=== PATIENT | male | born 1950 | race Two or more races ===

== ENCOUNTER 2019-11-25 04:06 | Inpatient (IN) | payer MEDICARE, MEDICAID ==
[2019-11-25] VITALS (22 sets, daily range): BP systolic 103–128; BP diastolic 53–83
[~2019-11-25] VITALS: Ht 177.8 cm; Wt 87.8 kg
[2019-11-25 05:32] LABS: Basophils # (auto) 0 10 ^3/uL (0-0.2); Basophils % (auto) 0.2 % (0.0-2.0); Eosinophils # (auto) 0 10 ^3/uL (0-0.8); Hematocrit 29.1 % (41.0-53.0); Hemoglobin 9.7 g/dL (13.5-17.5); Lymphocytes # (auto) 0.5 10 ^3/uL (0.4-5.4); Lymphocytes % (auto) 10.3 % (10.0-50.0); Mean Corpuscular Hemoglobin 37.1 pg (28.0-32.0); Mean Corpuscular Hgb Conc. 33.2 g/dL (32.0-36.0); Mean Corpuscular Volume 111.7 fL (80.0-100.0); Monocytes # (auto) 0.4 10 ^3/uL (0-1.3); Neutrophils # (auto) 3.8 10 ^3/uL (1.6-8.6); Neutrophils % (auto) 80.5 % (37.0-80.0); Nucleated Red Blood Cells % 0.3 %; Platelet Count (auto) 87 10^3/uL (140-450); Red Blood Cells 2.61 10^6/uL (4.5-5.90); Red Cell Distribution Width 18.6 % (11.8-14.3); White Blood Cell 4.8 10^3/uL (4.4-10.8)
[2019-11-25 05:43] LABS: INR 1.27 (0.9-1.15)
[2019-11-25 05:45] LABS: Albumin 2.2 g/dL (3.4-5.0); Calcium 8.5 mg/dL (8.5-10.1); Potassium 3.8 mmol/L (3.5-5.1)
[2019-11-25 05:53] LABS: BUN/Creatinine Ratio 16.7; Bilirubin, Total 0.8 mg/dL (0.2-1.0); Magnesium 2.5 mg/dL (1.6-2.6); Total Protein 7.1 g/dL (6.4-8.2)
[2019-11-25] MEDS ORDERED: PIPERACILLIN-TAZOB 3.375GM 100 ML IV ONE (07:45)
[2019-11-25] MEDS ORDERED: ENOXAPARIN SOD 80 MG/0.8ML SYRINGE SC ONE (08:00)
[2019-11-25 08:25] LABS: CRP High Sensitivity 8.33 mg/dL (< 0.3)
[2019-11-25] MEDS: FAMOTIDINE (10MG/ML) 2ML VL IV ONE ×2 (08:29→08:34)
[2019-11-25] MEDS ORDERED: NITROGLYCERIN 0.4 MG SL TAB SL PRN (09:15)
[2019-11-25] MEDS ORDERED: MORPHINE SULF INJ 2 MG/ML SYRINGE 1ML IV PRN (09:15)
[2019-11-25] MEDS ORDERED: ONDANSETRON HCL 4 MG/2 ML VIAL IV PRN (09:30)
[2019-11-25] MEDS ORDERED: ZOLPIDEM TARTRATE 5 MG TAB PO PRN (09:30)
[2019-11-25] MEDS ORDERED: ALBUTEROL SULF 2.5 MG/0.5ML(0.5%) NEB SOLN NEB PRN (09:30)
[2019-11-25] MEDS ORDERED: LACTULOSE 20Gm/30ML SOLN PO PRN (09:30)
[2019-11-25] MEDS ORDERED: ACETAMINOPHEN 500 MG TAB PO PRN (09:30)
[2019-11-25] MEDS: DOXYCYCLINE 100MG/250ML 250 ML IV SCH ×2 (09:45→21:45)
[2019-11-25] MEDS: ASPirin 81 mg TAB PO SCH (10:00)
[2019-11-25] MEDS ORDERED: ENOXAPARIN SOD 30 MG/0.3 ML SYRINGE SC SCH (10:00)
[2019-11-25] MEDS: NITROGLYCERIN 0.2MG/HR TOPICAL PATCH TD SCH (10:00)
[2019-11-25] MEDS: FUROSEMIDE 40 MG/4 ML VIAL IV SCH (10:14)
[2019-11-25] MEDS: IPRATROPIUM BROM 0.5 MG/2.5ML INH SOL NEB SCH ×2 (12:00→18:00)
[2019-11-25] MEDS: ALBUTEROL SULF 2.5 MG/0.5ML(0.5%) NEB SOLN NEB SCH ×2 (12:00→18:00)
[2019-11-25] MEDS: ACCU-CHEK COMFORT CURVE STRIP VI SCH ×3 (12:40→22:52)
[2019-11-25] MEDS: InsuLIN REG 1unit/0.01ml Soln (100units/ml) SC SCH ×3 (12:40→22:00)
[2019-11-25] MEDS ORDERED: B-CO-5 PO (14:22)
[2019-11-25] MEDS ORDERED: FERR1TAB17 PO (14:24)
[2019-11-25] MEDS: ATORVASTATIN 20 MG TAB PO SCH (21:45)
[2019-11-26] VITALS (19 sets, daily range): BP systolic 108–173; BP diastolic 17–75
[2019-11-26] MEDS: IPRATROPIUM BROM 0.5 MG/2.5ML INH SOL NEB SCH ×4 (00:17→19:05)
[2019-11-26] MEDS: ALBUTEROL SULF 2.5 MG/0.5ML(0.5%) NEB SOLN NEB SCH ×4 (00:17→19:05)
[2019-11-26 03:49] LABS: Basophils # (auto) 0 10 ^3/uL (0-0.2); Basophils % (auto) 0.3 % (0.0-2.0); Eosinophils # (auto) 0 10 ^3/uL (0-0.8); Eosinophils % (auto) 0.1 % (0.0-7.0); Hemoglobin 9.4 g/dL (13.5-17.5); Lymphocytes # (auto) 0.6 10 ^3/uL (0.4-5.4); Nucleated Red Blood Cells % 0.2 %; Red Cell Distribution Width 18.8 % (11.8-14.3)
[2019-11-26 03:51] LABS: Hematocrit 28.7 % (41.0-53.0); Mean Corpuscular Hemoglobin 37.7 pg (28.0-32.0); Mean Corpuscular Hgb Conc. 32.8 g/dL (32.0-36.0); Mean Corpuscular Volume 114.9 fL (80.0-100.0); Monocytes # (auto) 0.5 10 ^3/uL (0-1.3); Monocytes % (auto) 7.9 % (0.0-12.0); Neutrophils # (auto) 4.9 10 ^3/uL (1.6-8.6); Neutrophils % (auto) 81.7 % (37.0-80.0); Platelet Count (auto) 72 10^3/uL (140-450); White Blood Cell 5.9 10^3/uL (4.4-10.8)
[2019-11-26 04:06] LABS: BUN/Creatinine Ratio 15.8; Calcium 8.5 mg/dL (8.5-10.1); Potassium 3.9 mmol/L (3.5-5.1)
[2019-11-26 04:10] LABS: Bilirubin, Total 0.8 mg/dL (0.2-1.0); Total Protein 6.6 g/dL (6.4-8.2)
[2019-11-26] MEDS: InsuLIN REG 1unit/0.01ml Soln (100units/ml) SC SCH ×4 (05:34→22:00)
[2019-11-26] MEDS: ACCU-CHEK COMFORT CURVE STRIP VI SCH ×4 (05:37→23:00)
[2019-11-26] MEDS ORDERED: SODIUM CHL 0.9% 1000 ML BAG XX ONE (07:00)
[2019-11-26] MEDS: NITROGLYCERIN 0.2MG/HR TOPICAL PATCH TD SCH (10:00)
[2019-11-26] MEDS: DOXYCYCLINE 100MG/250ML 250 ML IV SCH ×2 (10:07→18:03)
[2019-11-26] MEDS: FUROSEMIDE 40 MG/4 ML VIAL IV SCH (10:11)
[2019-11-26] MEDS: ASPirin 81 mg TAB PO SCH (10:12)
[2019-11-26] MEDS: Glucerna Carbsteady SHAKE Vanilla 8oz PO SCH ×2 (12:10→18:02)
[2019-11-26] MEDS ORDERED: EPOETIN ALFA 10,000 UNIT/1 ML VIAL SC ONE (21:00)
[2019-11-26] MEDS: ATORVASTATIN 20 MG TAB PO SCH (23:00)
[2019-11-26] MEDS: MUPIROCIN 2% OINT 15gm or 22gm EACHNOSTRI SCH (23:00)
[2019-11-26] MEDS: traMADol HCL 50 MG TAB PO PRN (23:52)
[2019-11-27] VITALS: BP 124/25
[2019-11-27] MEDS: IPRATROPIUM BROM 0.5 MG/2.5ML INH SOL NEB SCH ×4 (00:08→18:14)
[2019-11-27] MEDS: ALBUTEROL SULF 2.5 MG/0.5ML(0.5%) NEB SOLN NEB SCH ×4 (00:09→18:14)
[2019-11-27 04:00] VITALS: BP 104/13
[2019-11-27] MEDS: DOXYCYCLINE 100MG/250ML 250 ML IV SCH ×2 (05:54→18:54)
[2019-11-27] MEDS: ACCU-CHEK COMFORT CURVE STRIP VI SCH ×4 (06:51→21:36)
[2019-11-27] MEDS: InsuLIN REG 1unit/0.01ml Soln (100units/ml) SC SCH ×4 (06:52→21:35)
[2019-11-27 07:07] LABS: Basophils # (auto) 0 10 ^3/uL (0-0.2); Basophils % (auto) 0.3 % (0.0-2.0); Eosinophils # (auto) 0 10 ^3/uL (0-0.8); Monocytes # (auto) 0.5 10 ^3/uL (0-1.3); Neutrophils # (auto) 4.5 10 ^3/uL (1.6-8.6); White Blood Cell 5.6 10^3/uL (4.4-10.8)
[2019-11-27 07:11] LABS: Hematocrit 27.3 % (41.0-53.0); Hemoglobin 8.7 g/dL (13.5-17.5); Lymphocytes # (auto) 0.5 10 ^3/uL (0.4-5.4); Lymphocytes % (auto) 9.7 % (10.0-50.0); Mean Corpuscular Hemoglobin 36.8 pg (28.0-32.0); Mean Corpuscular Hgb Conc. 31.7 g/dL (32.0-36.0); Mean Corpuscular Volume 116.1 fL (80.0-100.0); Monocytes % (auto) 8.3 % (0.0-12.0); Neutrophils % (auto) 81.7 % (37.0-80.0); Nucleated Red Blood Cells % 0.1 %; Platelet Count (auto) 63 10^3/uL (140-450); Red Blood Cells 2.35 10^6/uL (4.5-5.90); Red Cell Distribution Width 19.1 % (11.8-14.3)
[2019-11-27 07:27] LABS: Calcium 7.9 mg/dL (8.5-10.1)
[2019-11-27 07:34] LABS: BUN/Creatinine Ratio 15.8; Bilirubin, Total 0.6 mg/dL (0.2-1.0); Total Protein 6.3 g/dL (6.4-8.2)
[2019-11-27 08:00] VITALS: BP 113/29
[2019-11-27] MEDS: Glucerna Carbsteady SHAKE Vanilla 8oz PO SCH ×3 (08:00→18:55)
[2019-11-27] MEDS: FUROSEMIDE 40 MG/4 ML VIAL IV SCH (10:00)
[2019-11-27] MEDS: NITROGLYCERIN 0.2MG/HR TOPICAL PATCH TD SCH (10:00)
[2019-11-27] MEDS: ASPirin 81 mg TAB PO SCH (10:21)
[2019-11-27] MEDS: MUPIROCIN 2% OINT 15gm or 22gm EACHNOSTRI SCH ×2 (10:21→21:35)
[2019-11-27 12:00] VITALS: BP 110/30
[2019-11-27 16:59] VITALS: BP 134/59
[2019-11-27 21:00] VITALS: BP 148/121
[2019-11-27] MEDS: ATORVASTATIN 20 MG TAB PO SCH (21:35)
[2019-11-28] MEDS: IPRATROPIUM BROM 0.5 MG/2.5ML INH SOL NEB SCH ×4 (00:07→18:27)
[2019-11-28] MEDS: ALBUTEROL SULF 2.5 MG/0.5ML(0.5%) NEB SOLN NEB SCH ×4 (00:07→18:28)
[2019-11-28] MEDS: traMADol HCL 50 MG TAB PO PRN (00:46)
[2019-11-28 05:00] VITALS: BP 134/54
[2019-11-28] MEDS: DOXYCYCLINE 100MG/250ML 250 ML IV SCH ×2 (06:19→18:04)
[2019-11-28] MEDS: ACCU-CHEK COMFORT CURVE STRIP VI SCH ×4 (06:20→22:01)
[2019-11-28] MEDS: InsuLIN REG 1unit/0.01ml Soln (100units/ml) SC SCH ×4 (06:20→22:00)
[2019-11-28] MEDS: DEXTROSE (50%) 50ML SYRG IV PRN ×2 (06:33→16:38)
[2019-11-28 07:29] LABS: Basophils # (auto) 0 10 ^3/uL (0-0.2); Eosinophils # (auto) 0 10 ^3/uL (0-0.8); Eosinophils % (auto) 0.1 % (0.0-7.0); Hemoglobin 8.6 g/dL (13.5-17.5); Monocytes # (auto) 0.5 10 ^3/uL (0-1.3); Red Cell Distribution Width 19.2 % (11.8-14.3); White Blood Cell 6.4 10^3/uL (4.4-10.8)
[2019-11-28 07:33] LABS: Basophils % (auto) 0.3 % (0.0-2.0); Hematocrit 27.7 % (41.0-53.0); Lymphocytes # (auto) 0.6 10 ^3/uL (0.4-5.4); Lymphocytes % (auto) 8.9 % (10.0-50.0); Mean Corpuscular Hemoglobin 36.1 pg (28.0-32.0); Mean Corpuscular Hgb Conc. 31.1 g/dL (32.0-36.0); Mean Corpuscular Volume 116.1 fL (80.0-100.0); Neutrophils # (auto) 5.3 10 ^3/uL (1.6-8.6); Neutrophils % (auto) 82.7 % (37.0-80.0); Nucleated Red Blood Cells % 0.1 %; Platelet Count (auto) 64 10^3/uL (140-450); Red Blood Cells 2.38 10^6/uL (4.5-5.90)
[2019-11-28 07:48] LABS: Potassium 4.5 mmol/L (3.5-5.1)
[2019-11-28] MEDS: Glucerna Carbsteady SHAKE Vanilla 8oz PO SCH ×3 (08:00→18:30)
[2019-11-28 08:02] LABS: BUN/Creatinine Ratio 14.8; Bilirubin, Total 0.7 mg/dL (0.2-1.0); Calcium 8.1 mg/dL (8.5-10.1); Total Protein 6.3 g/dL (6.4-8.2)
[2019-11-28 08:58] VITALS: BP 99/53
[2019-11-28] MEDS: MUPIROCIN 2% OINT 15gm or 22gm EACHNOSTRI SCH ×2 (10:00→22:01)
[2019-11-28] MEDS: FUROSEMIDE 40 MG/4 ML VIAL IV SCH (10:00)
[2019-11-28] MEDS: ASPirin 81 mg TAB PO SCH (10:00)
[2019-11-28] MEDS: NITROGLYCERIN 0.2MG/HR TOPICAL PATCH TD SCH (10:03)
[2019-11-28 13:25] VITALS: BP 115/57
[2019-11-28 16:31] VITALS: BP 125/61
[2019-11-28] MEDS: MORPHINE SULF INJ 2 MG/ML SYRINGE 1ML IV PRN (18:04)
[2019-11-28] MEDS: ATORVASTATIN 20 MG TAB PO SCH (21:58)
[2019-11-28 22:00] VITALS: BP 105/50
[2019-11-29] MEDS: IPRATROPIUM BROM 0.5 MG/2.5ML INH SOL NEB SCH ×5 (00:42→18:04)
[2019-11-29] MEDS: ALBUTEROL SULF 2.5 MG/0.5ML(0.5%) NEB SOLN NEB SCH ×5 (00:42→18:04)
[2019-11-29 04:44] VITALS: BP 105/50
[2019-11-29 05:31] VITALS: BP 109/49
[2019-11-29] MEDS: DOXYCYCLINE 100MG/250ML 250 ML IV SCH ×2 (06:16→18:05)
[2019-11-29 06:19] LABS: Eosinophils # (auto) 0 10 ^3/uL (0-0.8); Eosinophils % (auto) 0.1 % (0.0-7.0); Lymphocytes # (auto) 0.5 10 ^3/uL (0.4-5.4); Monocytes # (auto) 0.5 10 ^3/uL (0-1.3); Neutrophils % (auto) 85.1 % (37.0-80.0)
[2019-11-29 06:22] LABS: Basophils # (auto) 0 10 ^3/uL (0-0.2); Basophils % (auto) 0.7 % (0.0-2.0); Hematocrit 26.1 % (41.0-53.0); Hemoglobin 8.6 g/dL (13.5-17.5); Lymphocytes % (auto) 7.5 % (10.0-50.0); Mean Corpuscular Hemoglobin 37.4 pg (28.0-32.0); Mean Corpuscular Hgb Conc. 32.8 g/dL (32.0-36.0); Mean Corpuscular Volume 113.9 fL (80.0-100.0); Monocytes % (auto) 6.6 % (0.0-12.0); Neutrophils # (auto) 5.9 10 ^3/uL (1.6-8.6); Platelet Count (auto) 55 10^3/uL (140-450); Red Blood Cells 2.29 10^6/uL (4.5-5.90); Red Cell Distribution Width 18.2 % (11.8-14.3)
[2019-11-29] MEDS: ACCU-CHEK COMFORT CURVE STRIP VI SCH ×4 (06:34→21:50)
[2019-11-29] MEDS: DEXTROSE (50%) 50ML SYRG IV PRN ×2 (06:34→18:19)
[2019-11-29] MEDS: InsuLIN REG 1unit/0.01ml Soln (100units/ml) SC SCH ×4 (06:34→21:50)
[2019-11-29 06:37] LABS: Potassium 4.8 mmol/L (3.5-5.1)
[2019-11-29 06:47] LABS: BUN/Creatinine Ratio 15.2; Calcium 8.2 mg/dL (8.5-10.1)
[2019-11-29] MEDS ORDERED: SODIUM CHL 0.9% 1000 ML BAG XX ONE (07:00)
[2019-11-29] MEDS: Glucerna Carbsteady SHAKE Vanilla 8oz PO SCH ×3 (08:00→18:40)
[2019-11-29 08:46] LABS: INR 1.26 (0.9-1.15)
[2019-11-29 09:00] VITALS: BP 149/72
[2019-11-29] MEDS: ASPirin 81 mg TAB PO SCH (09:45)
[2019-11-29] MEDS: NITROGLYCERIN 0.2MG/HR TOPICAL PATCH TD SCH (09:46)
[2019-11-29] MEDS: MORPHINE SULF INJ 2 MG/ML SYRINGE 1ML IV PRN (09:49)
[2019-11-29] MEDS: MUPIROCIN 2% OINT 15gm or 22gm EACHNOSTRI SCH ×2 (11:18→21:49)
[2019-11-29] MEDS ORDERED: LIDOCAINE 2%HCL (LOCAL ANESTH.) INJ 20ML MDV ONE (12:10)
[2019-11-29] MEDS ORDERED: IOHEXOL 350 MG/ML 100ML IJ ONE (12:10)
[2019-11-29 13:00] VITALS: BP 126/59
[2019-11-29] MEDS ORDERED: SODIUM CHL 0.9% 0 ML ONE (13:22)
[2019-11-29] MEDS ORDERED: ANGIOMAX 250 MG VIAL IV ONE (13:22)
[2019-11-29] MEDS ORDERED: diphenhdrAMINE HCL 50 MG/1 ML VL ONE (13:22)
[2019-11-29 15:41] VITALS: BP 115/52
[2019-11-29 21:00] VITALS: BP 148/72
[2019-11-29] MEDS ORDERED: EPOETIN ALFA 10,000 UNIT/1 ML VIAL SC ONE (21:00)
[2019-11-29] MEDS: ATORVASTATIN 20 MG TAB PO SCH (21:49)
[2019-11-30] MEDS: IPRATROPIUM BROM 0.5 MG/2.5ML INH SOL NEB SCH ×4 (00:14→18:34)
[2019-11-30] MEDS: ALBUTEROL SULF 2.5 MG/0.5ML(0.5%) NEB SOLN NEB SCH ×4 (00:14→18:34)
[2019-11-30 05:00] VITALS: BP 140/58
[2019-11-30] MEDS: DOXYCYCLINE 100MG/250ML 250 ML IV SCH (06:24)
[2019-11-30] MEDS: ACCU-CHEK COMFORT CURVE STRIP VI SCH ×3 (06:28→18:00)
[2019-11-30] MEDS: InsuLIN REG 1unit/0.01ml Soln (100units/ml) SC SCH ×3 (06:29→18:00)
[2019-11-30] MEDS: DEXTROSE (50%) 50ML SYRG IV PRN (06:29)
[2019-11-30 06:58] LABS: Basophils # (auto) 0 10 ^3/uL (0-0.2); Basophils % (auto) 0.3 % (0.0-2.0); Eosinophils # (auto) 0 10 ^3/uL (0-0.8); Eosinophils % (auto) 0.2 % (0.0-7.0); Hematocrit 27.9 % (41.0-53.0); Hemoglobin 8.9 g/dL (13.5-17.5); Lymphocytes # (auto) 0.4 10 ^3/uL (0.4-5.4); Lymphocytes % (auto) 5.6 % (10.0-50.0); Mean Corpuscular Hemoglobin 36.4 pg (28.0-32.0); Mean Corpuscular Hgb Conc. 32.1 g/dL (32.0-36.0); Mean Corpuscular Volume 113.5 fL (80.0-100.0); Monocytes # (auto) 0.4 10 ^3/uL (0-1.3); Monocytes % (auto) 5.6 % (0.0-12.0); Neutrophils # (auto) 6.6 10 ^3/uL (1.6-8.6); Neutrophils % (auto) 88.3 % (37.0-80.0); Platelet Count (auto) 48 10^3/uL (140-450); Red Blood Cells 2.46 10^6/uL (4.5-5.90); Red Cell Distribution Width 18.4 % (11.8-14.3); White Blood Cell 7.5 10^3/uL (4.4-10.8)
[2019-11-30 07:14] LABS: Potassium 5.1 mmol/L (3.5-5.1)
[2019-11-30 07:25] LABS: BUN/Creatinine Ratio 15.5; Calcium 8.3 mg/dL (8.5-10.1)
[2019-11-30 08:00] VITALS: BP 160/74
[2019-11-30] MEDS: traMADol HCL 50 MG TAB PO PRN (08:41)
[2019-11-30] MEDS: ASPirin 81 mg TAB PO SCH (08:41)
[2019-11-30] MEDS: Glucerna Carbsteady SHAKE Vanilla 8oz PO SCH ×3 (08:42→18:32)
[2019-11-30 09:00] VITALS: BP 174/91
[2019-11-30] MEDS: MUPIROCIN 2% OINT 15gm or 22gm EACHNOSTRI SCH ×2 (11:33→21:37)
[2019-11-30] MEDS: NITROGLYCERIN 0.2MG/HR TOPICAL PATCH TD SCH (11:34)
[2019-11-30] MEDS ORDERED: DEXTROSE (50%) 50ML SYRG IV PRN (12:15)
[2019-11-30] MEDS: DEXTROSE 10% 1,000 ML IV SCH (12:30)
[2019-11-30 13:00] VITALS: BP 147/75
[2019-11-30 17:00] VITALS: BP 150/69
[2019-11-30] MEDS ORDERED: InsuLIN REG 1unit/0.01ml Soln (100units/ml) SC SCH (18:00)
[2019-11-30] MEDS: ATORVASTATIN 20 MG TAB PO SCH (21:37)
[2019-11-30 22:35] VITALS: BP 162/74
[2019-12-01] MEDS: ACCU-CHEK COMFORT CURVE STRIP VI SCH ×5 (00:07→23:47)
[2019-12-01] MEDS: ALBUTEROL SULF 2.5 MG/0.5ML(0.5%) NEB SOLN NEB SCH ×4 (00:25→18:53)
[2019-12-01] MEDS: IPRATROPIUM BROM 0.5 MG/2.5ML INH SOL NEB SCH ×4 (00:25→18:53)
[2019-12-01 05:26] VITALS: BP 160/73
[2019-12-01] MEDS: InsuLIN REG 1unit/0.01ml Soln (100units/ml) SC SCH ×5 (06:00→23:48)
[2019-12-01 07:30] LABS: Basophils # (auto) 0 10 ^3/uL (0-0.2); Basophils % (auto) 0.2 % (0.0-2.0); Eosinophils # (auto) 0 10 ^3/uL (0-0.8); Lymphocytes # (auto) 0.4 10 ^3/uL (0.4-5.4); Monocytes # (auto) 0.4 10 ^3/uL (0-1.3)
[2019-12-01 07:32] LABS: Eosinophils % (auto) 0.2 % (0.0-7.0); Hematocrit 28.5 % (41.0-53.0); Hemoglobin 9.1 g/dL (13.5-17.5); Lymphocytes % (auto) 6.3 % (10.0-50.0); Mean Corpuscular Hemoglobin 36.3 pg (28.0-32.0); Mean Corpuscular Volume 113.4 fL (80.0-100.0); Monocytes % (auto) 6.7 % (0.0-12.0); Neutrophils # (auto) 5.2 10 ^3/uL (1.6-8.6); Neutrophils % (auto) 86.6 % (37.0-80.0); Nucleated Red Blood Cells % 0.1 %; Platelet Count (auto) 43 10^3/uL (140-450); Red Blood Cells 2.51 10^6/uL (4.5-5.90); Red Cell Distribution Width 18.4 % (11.8-14.3)
[2019-12-01 07:43] LABS: BUN/Creatinine Ratio 13.5; Calcium 8.1 mg/dL (8.5-10.1); Potassium 4.4 mmol/L (3.5-5.1)
[2019-12-01] MEDS: DEXTROSE 10% 1,000 ML IV SCH (08:45)
[2019-12-01] MEDS: Glucerna Carbsteady SHAKE Vanilla 8oz PO SCH ×3 (08:46→18:20)
[2019-12-01 09:00] VITALS: BP 157/86
[2019-12-01] MEDS: ASPirin 81 mg TAB PO SCH (09:30)
[2019-12-01] MEDS: NITROGLYCERIN 0.2MG/HR TOPICAL PATCH TD SCH (09:31)
[2019-12-01] MEDS: MUPIROCIN 2% OINT 15gm or 22gm EACHNOSTRI SCH ×2 (09:32→21:42)
[2019-12-01 13:00] VITALS: BP 158/73
[2019-12-01 17:42] VITALS: BP 138/59
[2019-12-01] MEDS: ATORVASTATIN 20 MG TAB PO SCH (21:42)
[2019-12-01] MEDS: MORPHINE SULF INJ 2 MG/ML SYRINGE 1ML IV PRN (21:54)
[2019-12-01 22:00] VITALS: BP 151/69
[2019-12-02] MEDS: ALBUTEROL SULF 2.5 MG/0.5ML(0.5%) NEB SOLN NEB SCH ×4 (00:37→19:11)
[2019-12-02] MEDS: IPRATROPIUM BROM 0.5 MG/2.5ML INH SOL NEB SCH ×4 (00:37→19:11)
[2019-12-02] MEDS: MORPHINE SULF INJ 2 MG/ML SYRINGE 1ML IV PRN (02:51)
[2019-12-02 05:18] VITALS: BP 155/70
[2019-12-02] MEDS: Glucerna Carbsteady SHAKE Vanilla 8oz PO SCH ×3 (08:19→17:43)
[2019-12-02 08:44] LABS: Basophils # (auto) 0 10 ^3/uL (0-0.2); Eosinophils # (auto) 0 10 ^3/uL (0-0.8); Hemoglobin 8.3 g/dL (13.5-17.5); Lymphocytes # (auto) 0.7 10 ^3/uL (0.4-5.4); Monocytes # (auto) 0.4 10 ^3/uL (0-1.3); Nucleated Red Blood Cells % 0.1 %
[2019-12-02 08:46] LABS: Basophils % (auto) 0.7 % (0.0-2.0); Eosinophils % (auto) 0.4 % (0.0-7.0); Hematocrit 25.2 % (41.0-53.0); Lymphocytes % (auto) 12.5 % (10.0-50.0); Mean Corpuscular Volume 112.3 fL (80.0-100.0); Monocytes % (auto) 7.5 % (0.0-12.0); Neutrophils # (auto) 4.2 10 ^3/uL (1.6-8.6); Neutrophils % (auto) 78.9 % (37.0-80.0); Platelet Count (auto) 42 10^3/uL (140-450); Red Blood Cells 2.24 10^6/uL (4.5-5.90); Red Cell Distribution Width 17.5 % (11.8-14.3); White Blood Cell 5.3 10^3/uL (4.4-10.8)
[2019-12-02 09:00] VITALS: BP 123/43
[2019-12-02 09:08] LABS: BUN/Creatinine Ratio 14.4; Calcium 8.2 mg/dL (8.5-10.1); Potassium 5.2 mmol/L (3.5-5.1)
[2019-12-02 09:41] VITALS: BP 151/69
[2019-12-02] MEDS ORDERED: ATOR20TA50 PO (10:49)
[2019-12-02] MEDS ORDERED: ASPI81CH43 PO (10:49)
[2019-12-02] MEDS: ASPirin 81 mg TAB PO SCH (11:23)
[2019-12-02] MEDS: NITROGLYCERIN 0.2MG/HR TOPICAL PATCH TD SCH (11:23)
[2019-12-02] MEDS: MUPIROCIN 2% OINT 15gm or 22gm EACHNOSTRI SCH ×2 (11:24→21:27)
[2019-12-02] MEDS: InsuLIN REG 1unit/0.01ml Soln (100units/ml) SC SCH ×3 (12:00→23:56)
[2019-12-02] MEDS: ACCU-CHEK COMFORT CURVE STRIP VI SCH ×3 (14:30→23:55)
[2019-12-02 17:00] VITALS: BP 117/57
[2019-12-02] MEDS: traMADol HCL 50 MG TAB PO PRN (21:27)
[2019-12-02] MEDS: ATORVASTATIN 20 MG TAB PO SCH (21:27)
[2019-12-02 22:00] VITALS: BP 121/59
[2019-12-03] MEDS: MORPHINE SULF INJ 2 MG/ML SYRINGE 1ML IV PRN ×2 (00:34→14:03)
[2019-12-03] MEDS: ALBUTEROL SULF 2.5 MG/0.5ML(0.5%) NEB SOLN NEB SCH ×4 (00:59→18:50)
[2019-12-03] MEDS: IPRATROPIUM BROM 0.5 MG/2.5ML INH SOL NEB SCH ×4 (00:59→18:50)
[2019-12-03 05:32] VITALS: BP 139/48
[2019-12-03] MEDS: ACCU-CHEK COMFORT CURVE STRIP VI SCH ×4 (06:00→23:33)
[2019-12-03] MEDS: InsuLIN REG 1unit/0.01ml Soln (100units/ml) SC SCH ×4 (06:00→23:32)
[2019-12-03] MEDS: DEXTROSE (50%) 50ML SYRG IV PRN (06:46)
[2019-12-03] MEDS: Glucerna Carbsteady SHAKE Vanilla 8oz PO SCH ×3 (08:00→17:27)
[2019-12-03 09:00] VITALS: BP 127/70
[2019-12-03] MEDS: ASPirin 81 mg TAB PO SCH (09:32)
[2019-12-03] MEDS: MUPIROCIN 2% OINT 15gm or 22gm EACHNOSTRI SCH ×2 (09:32→21:29)
[2019-12-03] MEDS: NITROGLYCERIN 0.2MG/HR TOPICAL PATCH TD SCH (09:34)
[2019-12-03 13:00] VITALS: BP_SYST 115; BP_SYST 126; BP_DIAS 59; BP_DIAS 99
[2019-12-03 17:47] VITALS: BP 111/51
[2019-12-03] MEDS ORDERED: SODIUM CHL 0.9% 1000 ML BAG XX ONE (18:15)
[2019-12-03] MEDS: ATORVASTATIN 20 MG TAB PO SCH (21:28)
[2019-12-03 22:00] VITALS: BP 142/20
[2019-12-04] MEDS: ALBUTEROL SULF 2.5 MG/0.5ML(0.5%) NEB SOLN NEB SCH ×5 (01:02→23:44)
[2019-12-04] MEDS: IPRATROPIUM BROM 0.5 MG/2.5ML INH SOL NEB SCH ×5 (01:02→23:44)
[2019-12-04 05:00] VITALS: BP 148/64
[2019-12-04] MEDS: InsuLIN REG 1unit/0.01ml Soln (100units/ml) SC SCH ×3 (06:00→18:00)
[2019-12-04] MEDS: ACCU-CHEK COMFORT CURVE STRIP VI SCH ×3 (06:09→17:35)
[2019-12-04] MEDS: Glucerna Carbsteady SHAKE Vanilla 8oz PO SCH ×3 (08:37→17:35)
[2019-12-04 08:54] VITALS: BP 126/56
[2019-12-04] MEDS: ASPirin 81 mg TAB PO SCH (09:27)
[2019-12-04] MEDS: NITROGLYCERIN 0.2MG/HR TOPICAL PATCH TD SCH (09:29)
[2019-12-04] MEDS: MUPIROCIN 2% OINT 15gm or 22gm EACHNOSTRI SCH ×2 (09:32→21:21)
[2019-12-04 13:00] VITALS: BP 131/51
[2019-12-04 17:00] VITALS: BP 128/57
[2019-12-04] MEDS: ATORVASTATIN 20 MG TAB PO SCH (21:21)
[2019-12-04 22:00] VITALS: BP 148/47
[2019-12-05 05:00] VITALS: BP 124/52
[2019-12-05 06:13] LABS: Basophils # (auto) 0 10 ^3/uL (0-0.2); Eosinophils # (auto) 0 10 ^3/uL (0-0.8); Hemoglobin 8.8 g/dL (13.5-17.5); Monocytes # (auto) 0.5 10 ^3/uL (0-1.3); Monocytes % (auto) 8.7 % (0.0-12.0); Neutrophils # (auto) 4.2 10 ^3/uL (1.6-8.6)
[2019-12-05 06:15] LABS: Basophils % (auto) 0.4 % (0.0-2.0); Eosinophils % (auto) 0.2 % (0.0-7.0); Hematocrit 26.3 % (41.0-53.0); Lymphocytes # (auto) 0.6 10 ^3/uL (0.4-5.4); Lymphocytes % (auto) 10.5 % (10.0-50.0); Mean Corpuscular Hemoglobin 37.1 pg (28.0-32.0); Mean Corpuscular Hgb Conc. 33.4 g/dL (32.0-36.0); Neutrophils % (auto) 80.2 % (37.0-80.0); Nucleated Red Blood Cells % 0.1 %; Platelet Count (auto) 55 10^3/uL (140-450); Red Blood Cells 2.37 10^6/uL (4.5-5.90); Red Cell Distribution Width 17.2 % (11.8-14.3); White Blood Cell 5.3 10^3/uL (4.4-10.8)
[2019-12-05 06:38] LABS: BUN/Creatinine Ratio 15.8; Calcium 8.3 mg/dL (8.5-10.1)
[2019-12-05 06:41] LABS: Potassium 5.6 mmol/L (3.5-5.1)
[2019-12-05] MEDS ORDERED: ONDANSETRON HCL 4 MG/2 ML VIAL IV PRN (07:00)
[2019-12-05] MEDS ORDERED: DEXTROSE 10% 1,000 ML IV SCH (07:00)
[2019-12-05] MEDS ORDERED: ALBUTEROL SULF 2.5 MG/0.5ML(0.5%) NEB SOLN NEB PRN (07:00)
[2019-12-05] MEDS ORDERED: traMADol HCL 50 MG TAB PO PRN (07:00)
[2019-12-05] MEDS ORDERED: MORPHINE SULF INJ 2 MG/ML SYRINGE 1ML IV PRN ×2 (07:00)
[2019-12-05] MEDS ORDERED: ZOLPIDEM TARTRATE 5 MG TAB PO PRN (07:00)
[2019-12-05] MEDS ORDERED: LACTULOSE 20Gm/30ML SOLN PO PRN (07:00)
[2019-12-05] MEDS ORDERED: DEXTROSE (50%) 50ML SYRG IV PRN (07:00)
[2019-12-05] MEDS ORDERED: NITROGLYCERIN 0.4 MG SL TAB SL PRN (07:00)
[2019-12-05 09:00] VITALS: BP 168/90
[2019-12-05] MEDS ORDERED: ASPirin 81 mg TAB PO SCH (10:00)
[2019-12-05] MEDS ORDERED: MUPIROCIN 2% OINT 15gm or 22gm EACHNOSTRI SCH (10:00)
[2019-12-05] MEDS: IPRATROPIUM BROM 0.5 MG/2.5ML INH SOL NEB SCH ×2 (11:01→18:25)
[2019-12-05] MEDS: InsuLIN REG 1unit/0.01ml Soln (100units/ml) SC SCH ×2 (12:00→18:00)
[2019-12-05] MEDS: ACCU-CHEK COMFORT CURVE STRIP VI SCH ×2 (12:00→17:49)
[2019-12-05 13:00] VITALS: BP 135/58
[2019-12-05 13:16] VITALS: BP 166/89
[2019-12-05 17:00] VITALS: BP 109/55
[2019-12-05] MEDS ORDERED: ATORVASTATIN 20 MG TAB PO SCH (22:00)
== END 2019-12-05 19:06 | disposition home health service (06) | DRG 280 ==
LOC: ER 04:06 → EDBD 04:06 → TELE 04:07 → DOU IN ICU 13:06 → TELE-CENTR 11-27 14:10 → UNDODISIN 12-04 10:00
PROVIDERS: ADMIT Internal Medicine; ATTEND Internal Medicine Pulmonary Disease
PROC: 5A1D70Z Performance of Urinary Filtration, Intermittent, Less than 6 Hours Per Day (ICD-10-PCS; 2019-11-26)
PROC: B211YZZ Fluoroscopy of Multiple Coronary Arteries using Other Contrast (ICD-10-PCS; principal; 2019-11-29)
PROC: 5A1D70Z Performance of Urinary Filtration, Intermittent, Less than 6 Hours Per Day (ICD-10-PCS; 2019-11-30)
PROC: 5A1D70Z Performance of Urinary Filtration, Intermittent, Less than 6 Hours Per Day (ICD-10-PCS; 2019-12-03)
DX: I21.4 Non-ST elevation (NSTEMI) myocardial infarction (principal); I50.43 Acute on chronic combined systolic (congestive) and diastolic (congestive) heart failure; N18.6 End stage renal disease; E87.1 Hypo-osmolality and hyponatremia; D68.9 Coagulation defect, unspecified; E44.0 Moderate protein-calorie malnutrition; I13.2 Hypertensive heart and chronic kidney disease with heart failure and with stage 5 chronic kidney disease, or end stage renal disease; D69.6 Thrombocytopenia, unspecified; D63.1 Anemia in chronic kidney disease; Z99.2 Dependence on renal dialysis; E88.09 Other disorders of plasma-protein metabolism, not elsewhere classified; L89.159 Pressure ulcer of sacral region, unspecified stage; R62.7 Adult failure to thrive; Z20.828 Contact with and (suspected) exposure to other viral communicable diseases; E11.22 Type 2 diabetes mellitus with diabetic chronic kidney disease; E11.51 Type 2 diabetes mellitus with diabetic peripheral angiopathy without gangrene; E11.65 Type 2 diabetes mellitus with hyperglycemia; Z83.3 Family history of diabetes mellitus; Z95.2 Presence of prosthetic heart valve; Z68.27 Body mass index [BMI] 27.0-27.9, adult; Z79.899 Other long term (current) drug therapy; L89.629 Pressure ulcer of left heel, unspecified stage; L89.619 Pressure ulcer of right heel, unspecified stage
CPT/HCPCS: 36415; 71045; 78582; 80048; 80053; 82550; 82728; 82962; 83036; 83605; 83615; 83735; 83880; 84443; 84484; 85025; 85379; 85610; 85730; 86141; 87040; 87081; 87426; 90935; 93005; 93306; 93454; 93970; 94640; 97110; 97163; 97530; 99152; 99291; G0378; J0885; J1642; J2405; J2543; J3490

== ENCOUNTER → 2019-12-06 | Emergency (ER) | payer MEDICARE, MEDICAID ==
[~2019-12-06] MED LIST: AMIODARONE HCL (50 MG/ ML) 3 ML VIAL IV ONE; ASPI81CH43 PO; ATOR20TA50 PO; B-CO-5 PO; CALCIUM CHLOR(10%) 100MG/ML 10ML SYRINGE IV ONE; EPINEPHrine HCL 1 MG/10 ML SYRG IV ONE; EPINEPHrine HCL 1 MG/10 ML SYRG ONE; EPINEPHrine HCL 250 ML IV SCH; FERR1TAB17 PO; SODIUM BICARBONATE 8.4 % INJ 50ML VIAL IV ONE; SODIUM BICARBONATE 8.4% INJ 50ML SYRINGE IV ONE
== END | disposition expired ==
LOC: EDUNIT# 12:48 → ER 12:54 → EDBD 12:54
DX: I46.9 Cardiac arrest, cause unspecified (principal); J96.01 Acute respiratory failure with hypoxia; I12.9 Hypertensive chronic kidney disease with stage 1 through stage 4 chronic kidney disease, or unspecified chronic kidney disease; E11.22 Type 2 diabetes mellitus with diabetic chronic kidney disease; N18.9 Chronic kidney disease, unspecified
CPT/HCPCS: 31500; 36556; 92950; 99285; J0171; J0282